=== PATIENT | female | born 1955 | race Caucasian/White ===

== ENCOUNTER 2021-05-27 00:16 | Emergency (ER) | payer OTHER ==
[2021-05-27] MEDS ORDERED: Ketorolac 15 MG/ML SDV IM ONE (00:57)
[2021-05-27] MEDS ORDERED: Lactated Ringers 1,000 ML IV SCH (01:00)
[2021-05-27] MEDS: Ketorolac 15 MG/ML SDV IVPUSH STA ×2 (01:11→02:30)
[2021-05-27 01:26] LABS: CARBON DIOXIDE,CO2 26.9 mmol/L (21.0-32.0); POTASSIUM,K 4.4 mmol/L (3.5-5.1)
--- NOTE | 2021-05-27 02:14 | CT ---
INDICATION: Left flank pain. Evaluate for nephrolithiasis. COMPARISON: None available TECHNIQUE: CT examination of the abdomen and pelvis was performed without contrast enhancement using 2.5 mm thick axial sections from the lung bases through the pubic symphysis. Oral contrast was not administered. Please note that all CT scans at this facility use dose modulation, iterative reconstruction, and/or weight-based dosing when appropriate to reduce radiation dose to as low as reasonably achievable. FINDINGS: There is mild right hydronephrosis and moderate right hydroureter extending to the level of the mid acetabulum, produced by a 4 millimeter distal ureteral calculus. There is no sign of any additional left renal or ureteral calculi. There is no sign of any right renal or ureteral calculi, with no sign of right hydronephrosis or right hydroureter. In the abdomen, the unenhanced liver, spleen, pancreas, and adrenals are normal in appearance. Clips are seen in the gall bladder fossa from cholecystectomy. There is no sign of biliary ductal dilatation. The abdominal aorta is normal in caliber with no sign of dilatation. There is no sign of retroperitoneal mass or adenopathy. The stomach, loops of small bowel, and colon in the abdomen are normal in appearance. In the pelvis, the appendix is normal in appearance with no sign of inflammatory process. The loops of small bowel and colon in the pelvis are normal in appearance. The uterus is absent and the adnexal regions are normal in appearance. The urinary bladder is normal in appearance. There is no sign of pelvic or inguinal mass or adenopathy. There is no sign of free air or free fluid in the abdomen or pelvis. The lung bases are clear. There is mild L5-S1 disc degenerative disease. The osseous structures are otherwise normal in appearance for the patient`s age. IMPRESSION: Mild left hydronephrosis and moderate left hydroureter produced by a 4 millimeter distal ureteral calculus located at the level of the mid acetabulum. CT of the abdomen shows no sign of any additional renal or ureteral calculi on either side. Status post cholecystectomy with no sign of biliary ductal dilatation. CT of the pelvis shows changes of hysterectomy. Please note that all CT scans at this facility use dose modulation, iterative reconstruction, and/or weight-based dosing when appropriate to reduce radiation dose to as low as reasonably achievable. Dictated by Bruno Mcclellan MD @ 05/27/2021 2:13:[address] Bruno Mcclellan @ May 27 2021 2:13AM
[2021-05-27] MEDS ORDERED: Tamsulosin 0.4 MG Cap.ER PO ONE (02:16)
--- NOTE | 2021-05-27 02:19 | EDM.PDOC ---
ED HPI GENERAL MEDICAL PROBLEM - General Chief Complaint: Abdominal Pain Stated Complaint: LEFT SIDE PAIN Time Seen by Provider: 05/27/21 00:53 - History of Present Illness INITIAL COMMENTS - FREE TEXT/NARRATIVE: CHIEF COMPLAINT(S): Abdominal pain HISTORY OF PRESENT ILLNESS: This is a 66-year-old woman without any significant past medical history who comes to the emergency department with a chief complaint of a left-sided abdominal pain. The patient states that for approximately a few hours she has been experiencing left-sided abdominal pain and flank pain associated with nausea. She rates his pain as 10 out of 10 which radiates from her back to her front. She describes the pain as sharp. She states that she has the urge to urinate but does not urinate a lot. She denies any dysuria or hematuria. She has not yet tried any pain medication therefore there is no relieving factors. There are no exacerbating factors. She denies any fevers or chills. She denies any blood in her stool, melena hematochezia or hematemesis. REVIEW OF SYSTEMS: Constitutional: Denies fever, chills. Eyes: Denies eye pain Ears, Nose, Mouth, & Throat: Denies earache Cardiovascular: Denies chest pain Respiratory: Denies shortness of breath Gastrointestinal: Positive for left lower quadrant abdominal pain and nausea. Denies diarrhea, medic easier, hematemesis, bilious emesis genitourinary: Positive for increased urgency to urinate. Positive for left flank pain. Denies dysuria, hematuria Skin:Denies a rash MSK: Denies joint pain Neurological: Denies blurred vision Psychiatric: Denies depression PAST MEDICAL HISTORY: As per history of present illness and as reviewed below otherwise noncontributory. SURGICAL HISTORY: As per history of present illness and as reviewed below otherwise noncontributory. LMP: Menopausal SOCIAL HISTORY: As per history of present illness and as reviewed below otherwise noncontributory. FAMILY HISTORY: As per history of present illness and as reviewed below otherwise noncontributory. EXAMINATION OF ORGAN SYSTEMS/BODY AREAS: Constitutional: Blood pressure is 173/89, heart rate 70, respiratory rate 18 with an oxygen saturation 98% on room air. Temperature 35.8 temporally General: Middle-aged woman who does not appear to be in acute distress. Psychiatric: Appropriate mood and affect. Eyes: No scleral icterus or conjunctival erythema ENMT: Moist mucous membranes. No pharyngeal erythema Cardiovascular: Regular, rate, and rhythm. No gallops, murmurs, or rubs. Bilateral upper extremity pulses symmetric and intact. No peripheral edema. No JVD. Respiratory: Lungs clear to auscultation bilaterally. No wheezes, rales, or rhonchi. Gastrointestinal: Soft, non-tender, non-distended. Normoactive bowel sounds minimal tenderness in the left lower quadrant. No rebound or guarding Genitourinary: No suprapubic tenderness or fullness. There is mild CVA tenderness on the left side. Musculoskeletal: Normal range of motion. Skin: No lesions or abrasions. Neurological: Alert, GCS 15 MEDICAL DECISION MAKING AND COURSE IN THE ED WITH INTERPRETATION/REVIEW OF DIAGNOSTIC STUDIES: This is a 66-year-old woman without any significant past medical history who comes to the emergency department with acute onset left flank pain with radiation to the left lower quadrant. At this time patient's vitals reveal some hypertension otherwise no abnormalities. The patient is afeb rile. Given the increased urge to urinate differential includes nephrolithiasis, cystitis. Will obtain CBC, CMP, urinalysis. Will obtain CT abdomen pelvis without contrast for evaluation for nephrolithiasis. We will provide the patient with Toradol for pain relief and 1 L of lactated Ringer's. We will provide her with Zofran for nausea relief. Differential also includes diverticulitis versus colitis. CT will help us differentiate. Laboratory analysis reveals a mildly elevated white count at 11.60 with no left shift. CMP is unremarkable. Urinalysis reveals hematuria without any evidence of infection. The radiological images were viewed by myself along with reading the report from the radiologist. CT abdomen pelvis without contrast reveals a 4 mm distal ureteral calculus with mild right hydroureter and hydronephrosis. After imaging I did provide the patient with an additional dose of Toradol and provided her with Flomax. I did discuss with her the results of the imaging. She is to strain her urine, take pain medication as prescribed and follow-up with urology. She was given strict return precautions. She was amenable discharge and had no further questions DISPOSITION: The patient was discharged home in stable condition. The patient will follow up with urology in 3 to 5 days CONDITION: Fair PROCEDURES: None FINAL IMPRESSION(S)/DIAGNOSES: 1. Acute left ureteral nephrolithiasis Zaheer Crawford M.D. Abdomen Pain Score (Numeric/FACES): 10 - Related Data Allergies Allergy/AdvReac Type Severity Reaction Status Date / Time No Known Allergies Allergy Verified 05/27/21 00:35 Home Meds: Home Meds Aspirin 325 mg PO DAILY 05/27/21 [History] Hydrocodone/Acetaminophen [HYDROcodone-Acetaminophen 5-325 MG] 1 each PO Q6HR PRN #10 tab 05/27/21 [Rx] Meloxicam 15 mg PO DAILY 05/27/21 [History] Mirabegron [Myrbetriq] 25 mg PO DAILY 05/27/21 [History] Naloxone HCl [Narcan] 4 mg NS ONETIME #1 spray 05/27/21 [Rx] Ondansetron [Zofran ODT] 4 mg PO Q6H PRN #8 tab.dis 05/27/21 [Rx] Tamsulosin HCl [Flomax] 0.4 mg PO DAILY #7 cap.er.24h 05/27/21 [Rx] Past Medical History HEENT History: Reports: None Cardiovascular History: Reports: None Respiratory History: Reports: None Gastrointestinal History: Reports: None Genitourinary History: Reports: None IS MANAGER History: Reports: None Musculoskeletal History: Reports: Osteoarthritis Neurological History: Reports: TIA Psychiatric History: Reports: None Endocrine/Metabolic History: Reports: None Insulin Pump Model and Barrel Maker: None Hematologic History: Reports: None Immunologic History: Reports: None Oncologic (Cancer) History: Reports: Uterine Dermatologic History: Reports: None - Infectious Disease History Infectious Disease History: Reports: None - Past Surgical History Head Surgeries/Procedures: Reports: None GI Surgical History: Reports: Cholecystectomy Social & Family History - Caffeine Use Caffeine Use: Reports: Coffee - Recreational Drug Use Recreational Drug Use: No ED ROS GENERAL - Review of Systems Review Of Systems: See Below ED EXAM, GENERAL - Physical Exam Exam: See Below Course - Vital Signs Last Recorded V/S: Last Vital Signs Temp 35.8 C L 05/27/21 00:37 Pulse 64 05/27/21 03:02 Resp 20 05/27/21 03:02 BP 180/87 H 05/27/21 03:02 Pulse Ox 97 05/27/21 03:02 - Orders/Labs/Meds Labs: Laboratory Tests 05/27/21 05/27/21 05/27/21 Range/Units 00:30 00:54 00:54 WBC 11.60 H (4.0-11.0) K/uL RBC 5.08 (4.30-5.90) M/uL Hgb 15.0 (12.0-16.0) g/dL Hct 45.1 (36.0-46.0) % MCV 88.8 (80.0-98.0) fL MCH 29.5 (27.0-32.0) pg MCHC 33.3 (31.0-37.0) g/dL RDW Std Deviation 44.9 (28.0-62.0) fl RDW Coeff of Fercho 14 (11.0-15.0) % Plt Count 270 (150-400) K/uL MPV 9.60 (7.40-12.00) fL Neut % (Auto) 60.1 (48.0-80.0) % Lymph % (Auto) 29.4 (16.0-40.0) % [place] % (Auto) 7.8 (0.0-15.0) % Eos % (Auto) 2.2 (0.0-7.0) % Baso % (Auto) 0.5 (0.0-1.5) % Neut # (Auto) 7.0 H (1.4-5.7) K/uL Lymph # (Auto) 3.4 H (0.6-2.4) K/uL [place] # (Auto) 0.9 H (0.0-0.8) K/uL Eos # (Auto) 0.3 (0.0-0.7) K/uL Baso # (Auto) 0.1 (0.0-0.1) K/uL Sodium 143 (136-145) mmol/L Potassium 4.4 (3.5-5.1) mmol/L Chloride 105 (98-107) mmol/L Carbon Dioxide 26.9 (21.0-32.0) mmol/L BUN 24 H (7.0-18.0) mg/dL Creatinine 1.0 (0.6-1.0) mg/dL Est Cr Clr Drug Dosing 57.33 mL/min Estimated GFR (MDRD) 55.8 ml/min Glucose 131 H (74-106) mg/dL Calcium 9.3 (8.5-10.1) mg/dL Total Bilirubin 0.2 (0.2-1.0) mg/dL AST 18 (15-37) IU/L ALT 29 (14-63) IU/L Alkaline Phosphatase 79 (46-116) U/L Total Protein 7.5 (6.4-8.2) g/dL Albumin 3.8 (3.4-5.0) g/dL Globulin 3.7 (2.6-4.0) g/dL Albumin/Globulin Ratio 1.0 (0.9-1.6) Urine Color YELLOW Urine Appearance SLT CLOUDY Urine pH 5.5 (5.0-8.0) Ur Specific [place] >= 1.030 (1.001-1.035) Urine Protein NEGATIVE (NEGATIVE) mg/dL Urine Glucose (UA) NEGATIVE (NEGATIVE) mg/dL Urine Ketones NEGATIVE (NEGATIVE) mg/dL Urine Occult Blood LARGE H (NEGATIVE) Urine Nitrite NEGATIVE (NEGATIVE) Urine Bilirubin NEGATIVE (NEGATIVE) Urine Urobilinogen 0.2 (<2.0) EU/dL Ur Leukocyte Esterase NEGATIVE (NEGATIVE) Urine RBC 20-30 (0-2/HPF) Urine WBC 3-6 (0-5/HPF) Ur Epithelial Cells FEW (NONE-FEW) Urine Bacteria FEW (NEGATIVE) Meds: Medications Discontinued Medications Generic Name Dose Route Start Last Admin Trade Name Freq PRN Reason Stop Dose Admin Lactated Ringer's 1,000 mls @ 999 mls/hr 05/27/21 01:00 05/27/21 01:11 Ringers, Lactated IV 999 mls/hr ASDIRECTED JESS Administration Ketorolac Tromethamine 15 mg 05/27/21 00:57 05/27/21 00:59 Ketorolac 15 Mg/Ml Sdv IM 05/27/21 00:58 Not Given ONETIME ONE Ketorolac Tromethamine 15 mg 05/27/21 00:58 05/27/21 02:30 Ketorolac 15 Mg/Ml Sdv IVPUSH 05/27/21 00:59 15 mg NOW STA Administration Ketorolac Tromethamine 15 mg 05/27/21 02:28 05/27/21 02:33 Ketorolac 15 Mg/Ml Sdv IVPUSH 05/27/21 02:29 Not Given ONETIME ONE Ondansetron HCl 4 mg 05/27/21 02:56 05/27/21 02:59 Ondansetron 4 Mg Tab.Dis PO 05/27/21 02:57 4 mg ONETIME ONE Administration Tamsulosin HCl 0.4 mg 05/27/21 02:16 05/27/21 02:31 Tamsulosin 0.4 Mg Cap.Er PO 05/27/21 02:17 0.4 mg ONETIME ONE Administration Departure - Departure Time of Disposition: 02:19 Disposition: Home, Self-Care 01 Condition: Fair Clinical Impression: Nephrolithiasis - Discharge Information *PRESCRIPTION DRUG MONITORING PROGRAM REVIEWED*: No *COPY OF PRESCRIPTION DRUG MONITORING REPORT IN PATIENT LACEY: No Prescriptions: Tamsulosin HCl [Flomax] 0.4 mg PO DAILY #7 cap.er.24h Hydrocodone/Acetaminophen [HYDROcodone-Acetaminophen 5-325 MG] 1 each PO Q6HR PRN #10 tab PRN Reason: Abdominal Pain Naloxone HCl [Narcan] 4 mg NS ONETIME #1 spray Ondansetron [Zofran ODT] 4 mg PO Q6H PRN #8 tab.dis PRN Reason: Nausea/Vomiting Instructions: Kidney Stones, [id number] Referrals: PCP,Not In Area [Primary Care Provider] - Forms: ED Department Discharge Additional Instructions: Your evaluated today on an emergent basis. At this time you do have a small kidney stone on the left side which appears to be in the process of passing. We do recommend that she use Flomax 0.4 mg daily and to use pain medication as needed for pain. Typically this size of stone passes on its own. At this time you do not have any signs of infection. I do recommend that you strain your urine to evaluate for the passage of the stone. If you have worsening pain, fever I would like you to return to the emergency department. Otherwise please follow-up with urology at the number below within 3-5 days!!! [facility] U[facility] Erin GOLDEN [phone] *When you call for an appointment say "I was seen in the ER in [place] and I have a kidney stone and need follow up this week." The patient is informed of any results of their evaluation and diagnostic workup and all questions are answered. They are given discharge instructions and return precautions. The patient is stable for discharge. The patient states they understand and agree with the plan and that they will return if their symptoms get worse or if they have any new concerns. The following information is given to patients seen in the emergency department who are being discharged to home. This information is to outline your options for follow-up care. We provide all patients seen in our emergency department with a follow-up referral. The need for follow-up, as well as the timing and circumstances, are variable depending upon the specifics of your emergency department visit. If you don't have a primary care physician on staff, we will provide you with a referral. We always advise you to contact your personal physician following an emergency department visit to inform them of the circumstance of the visit and for follow-up with them and/or the need for any referrals to a consulting specialist. The emergency department will also refer you to a specialist when appropriate. This referral assures that you have the opportunity for follow-up care with a specialist. All of these measure are taken in an effort to provide you with optimal care, which includes your follow-up. Under all circumstances we always encourage you to contact your private physician who remains a resource for coordinating your care. When calling for follow-up care, please make the office aware that this follow-up is from your recent emergency room visit. If for any reason you are refused follow-up, please contact the [facility] Emergency Department at and asked to speak to the emergency department charge nurse. Sepsis Event Note (ED) - Evaluation Sepsis Screening Result: No Definite Risk
[2021-05-27] MEDS ORDERED: Ketorolac 15 MG/ML SDV IVPUSH ONE (02:28)
[2021-05-27] MEDS ORDERED: Ondansetron 4 MG Tab.DIS PO ONE (02:56)
== END 2021-05-27 03:02 | disposition home or self-care (01) ==
LOC: MW.ED 00:16
DX: N13.2 Hydronephrosis with renal and ureteral calculous obstruction (principal); M19.90 Unspecified osteoarthritis, unspecified site; Z79.82 Long term (current) use of aspirin; Z79.899 Other long term (current) drug therapy
CPT/HCPCS: 36415; 74176; 80053; 81001; 85025; 96374; 96376; 99284; A9270; J1885; J7120

== ENCOUNTER 2021-06-02 13:04 | Emergency (ER) | payer OTHER ==
--- NOTE | 2021-06-02 14:19 | EDM.PDOC ---
ED HPI GENERAL MEDICAL PROBLEM - General Chief Complaint: Flank Pain Stated Complaint: KIDNEY STONES Time Seen by Provider: 06/02/21 13:58 - History of Present Illness INITIAL COMMENTS - FREE TEXT/NARRATIVE: HISTORY AND PHYSICAL: History of present illness: This is a healthy 66-year-old female with no history of hypertension, diabetes, liver, lung problems past who presents ER today secondary to persistent intermittent left flank pain that has been present for the last 4 days. Patient reports that she was seen and evaluated here in the ED and was diagnosed with a 4 mm kidney stone on the left side. She reports that she was given referrals but has not been able to follow-up since she is only here visiting her daughter and has not gone up to [facility] as of yet. Patient denies any recent fevers, shakes, chills. Patient reports that she had nausea vomiting on initial presentation however that has resolved over the last couple days. Patient denies any diarrhea. Patient denies any chest pain. Patient denies any dysuria, frequency or urgency but reports that she does have to strain to urinate. Patient has any hematuria. Review of systems: As per history of present illness and below otherwise all systems reviewed and negative. Past medical history: As per history of present illness and as reviewed below otherwise noncontributory. Surgical history: As per history of present illness and as reviewed below otherwise noncontributory. Social history: No reported history of drug abuse. Family history: As per history of present illness and as reviewed below otherwise noncontributory. Physical exam: This patient was seen and evaluated during the 2019 SARS-CoV-2 novel coronavirus pandemic period. Community viral transmission is ongoing at time of this encounter and the emergency department is operating under pandemic response procedures. Constitutional: Patient is oriented to person, place, and time. Appears well- developed and well-nourished. No distress. HEENT: Moist mucous membranes Head: Normocephalic and atraumatic Eyes: Right eye exhibits no discharge. Left eye exhibits no discharge. No scleral icterus Neck: Normal range of motion. No tracheal deviation present. Cardiovascular: Normal rate and regular rhythm. Pulmonary: Effort normal, no respiratory distress. Abd: Soft, nondistended, no rebound/guarding, no psoas or obturator signs, no tenderness at Mcberney's point, no Malin's sign. Pt does not present with an exam that would be consistent with an acute surgical abdomen at this time. Patient does have tenderness palpation to her left flank and left lower quadrant. Musculoskeletal: Normal range of motion Neurologic: Alert and oriented to person, place and time. Skin: [place], warm and dry. Psychiatric: Normal mood and affect. Behavior is normal. Judgment and thought content normal. Nursing note and vital signs have been reviewed Diagnostics: CT scan of the abdomen pelvis with IV contrast reveals a 4 mm kidney stone that appears to be progressing down the left ureter and is now approximately 1 cm away from the bladder. No other significant pathology. Patient does have some mild hydronephrosis. Therapeutics: Patient declined any pain medicines Assessment and plan: 66-year-old female who presents ER today secondary to intermittent flank pain secondary to a recently diagnosed kidney stone. Upon arrival to the ED she reports the pain is significantly proved throughout her visit in the ED she has not had any pain and has declined any further pain medicines. Patient reports that she has only been taking ibuprofen at home because she ran out of the [place] that was prescribed for her. Patient will be prescribed Flomax as well as [place] to assist her with passage of the stone and encouraged to continue with the ibuprofen. Patient will also be instructed to call the referrals that were given to her at [facility] for follow-up with urology if the pain should persist. Reassessment at the time of disposition demonstrates that the patient is in no acute distress. The patient has remained stable throughout the entire ED visit and is without objective evidence for acute process requiring urgent intervention or hospitalization. The patient is stable for discharge, counseling is provided as documented above, discussed symptomatic treatment and specific conditions for return. I have spoken with the patient/caregiver and discussed todays findings, in addition to providing specific details for the plan of care. Questions are answered and there is agreement with the plan. Definitive disposition and diagnosis as appropriate pending reevaluation and review of above. - Related Data Allergies Allergy/AdvReac Type Severity Reaction Status Date / Time Combid Allergy Facial Uncoded 06/02/21 13:18 Swelling Home Meds: Home Meds Aspirin 325 mg PO DAILY 05/27/21 [History] Hydrocodone/Acetaminophen [HYDROcodone-Acetaminophen 5-325 MG] 1 each PO Q6HR PRN #10 tab 05/27/21 [Rx] Meloxicam 15 mg PO DAILY 05/27/21 [History] Mirabegron [Myrbetriq] 25 mg PO DAILY 05/27/21 [History] Naloxone HCl [Narcan] 4 mg NS ONETIME #1 spray 05/27/21 [Rx] Ondansetron [Zofran ODT] 4 mg PO Q6H PRN #8 tab.dis 05/27/21 [Rx] Tamsulosin HCl [Flomax] 0.4 mg PO DAILY #7 cap.er.24h 05/27/21 [Rx] Hydrocodone/Acetaminophen [Hydrocodone-Acetamin 5-325 mg] 1 each PO Q6HR PRN #15 tab 06/02/21 [Rx] Ibuprofen 600 mg PO Q6HR PRN #30 tablet 06/02/21 [Rx] Tamsulosin HCl [Flomax] 0.4 mg PO BEDTIME #7 cap.er.24h 06/02/21 [Rx] Past Medical History HEENT History: Reports: None Cardiovascular History: Reports: None Respiratory History: Reports: None Gastrointestinal History: Reports: None Genitourinary History: Reports: None COWLMAN History: Reports: None Musculoskeletal History: Reports: Osteoarthritis Neurological History: Reports: TIA Psychiatric History: Reports: None Endocrine/Metabolic History: Reports: None 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 Hematologic History: Reports: None Immunologic History: Reports: None Oncologic (Cancer) History: Reports: Uterine Dermatologic History: Reports: None - Infectious Disease History Infectious Disease History: Reports: None - Past Surgical History Head Surgeries/Procedures: Reports: None GI Surgical History: Reports: Cholecystectomy Social & Family History - Tobacco Use Tobacco Use Status *Q: Never Tobacco User - Caffeine Use Caffeine Use: Reports: None - Recreational Drug Use Recreational Drug Use: No ED ROS GENERAL - Review of Systems Review Of Systems: See Below ED EXAM, GENERAL - Physical Exam Exam: See Below Course - Vital Signs Last Recorded V/S: Last Vital Signs Temp Pulse 69 06/02/21 13:18 Resp 16 06/02/21 13:18 BP 135/90 06/02/21 13:18 Pulse Ox 97 06/02/21 13:18 Departure - Departure Time of Disposition: 16:27 Disposition: Home, Self-Care 01 Condition: Good Clinical Impression: Hydronephrosis of left kidney, Ureteric colic - Discharge Information Instructions: Renal Colic, [id number], Hydronephrosis Referrals: PCP,None [Primary Care Provider] - Forms: ED Department Discharge Additional Instructions: You were seen and evaluated in ER today secondary to pain to your left flank from a kidney stone. Kidney stone today appears to have progressed when compared to your prior CT scan and is approximately 1 cm away from your bladder. You will be given a prescription for [place] as well as Flomax and you can continue taking ibuprofen to assist you with pain and discomfort. I would recommend that you call the urologist in [facility] for an appointment in case your stone does not pass. Please return to the ER if you have any new or concerning symptoms or if your pain worsens and becomes not relieved with the pain medicines that you were given. The following information is given to patients seen in the emergency department who are being discharged to home. This information is to outline your options for follow-up care. We provide all patients seen in our emergency department with a follow-up referral. The need for follow-up, as well as the timing and circumstances, are variable depending upon the specifics of your emergency department visit. If you don't have a primary care physician on staff, we will provide you with a referral. We always advise you to contact your personal physician following an emergency department visit to inform them of the circumstance of the visit and for follow-up with them and/or the need for any referrals to a consulting specialist. The emergency department will also refer you to a specialist when appropriate. This referral assures that you have the opportunity for follow-up care with a specialist. All of these measure are taken in an effort to provide you with optimal care, which includes your follow-up. Under all circumstances we always encourage you to contact your private physician who remains a resource for coordinating your care. When calling for follow-up care, please make the office aware that this follow-up is from your recent emergency room visit. If for any reason you are refused follow-up, please contact the [facility] Emergency Department at and asked to speak to the emergency department charge nurse. Chepe Cosby [facility] [address] [place] [id number] [address] Sepsis Event Note (ED) - Focused Exam Vital Signs: Vital Signs Pulse Resp BP Pulse Ox 06/02/21 13:18 69 16 135/90 97
--- NOTE | 2021-06-02 16:12 | CT ---
INDICATION: Left flank pain. Kidney stone. TECHNIQUE: Volumetric helical scanning of the abdomen and pelvis was performed without contrast material. Coronal and sagittal reconstructions were obtained. COMPARISON: Abdomen/pelvis CT of 05/27/2021. FINDINGS: The obstructing 4 mm distal left ureteral stone has proceeded further inferiorly in the interim and is now within 1 cm of the ureterovesical junction. No other stone is evident. There is continued mild left hydroureter and hydronephrosis. Periureteral and perinephric stranding has decreased since the prior study. The kidneys are normal in size, shape and attenuation. The bladder is grossly negative. Postop changes of total abdominal hysterectomy are demonstrated. No free fluid is evident. The liver and bile ducts are unremarkable. Post op changes of cholecystectomy are demonstrated. The spleen, adrenal glands and pancreas are negative. No lymphadenopathy is evident. No bowel abnormality is apparent. A normal appendix is noted. The lung bases are clear, and the heart size is normal. IMPRESSION: 1. Obstructing 4 mm distal left ureteral stone which is now within 1 cm of the UVJ. 2. Persistent mild left hydroureter and hydronephrosis. Periureteral and perinephric stranding decreased. 3. Post cholecystectomy and total abdominal hysterectomy. Please note that all CT scans at this facility use dose modulation, iterative reconstruction, and/or weight-based dosing when appropriate to reduce radiation dose to as low as reasonably achievable. Dictated by Hoang Farrar MD @ 06/02/2021 4:11:[address] Hoang Farrar @ Jun 02 2021 4:11PM
== END 2021-06-02 16:45 | disposition home or self-care (01) ==
LOC: MW.ED 13:04
DX: N13.2 Hydronephrosis with renal and ureteral calculous obstruction (principal); Z91.048 Other nonmedicinal substance allergy status; Z79.82 Long term (current) use of aspirin; Z79.899 Other long term (current) drug therapy
CPT/HCPCS: 74176; 74176-26; 99284-25